=== PATIENT | female | born 1985 | race African-American/Black ===

== ENCOUNTER 2017-02-17 16:40 | Emergency (ER) | payer OTHER ==
--- NOTE | ~2017-02-17 | EKG ---
PATIENT: RUTH MONROE UNIT #: [id number] Ventricular Rate: 68 BPM Atrial Rate: 68 BPM P-R Interval: 168 ms QRS Duration: 82 ms Q-T Interval: 424 ms QTC Calculation(Bezet): 450 ms P [place]: 46 degrees Calculated R [place]: 38 degrees Calculated T [place]: 22 degrees Diagnosis Line: Normal sinus rhythm with sinus arrhythmia Diagnosis Line: Normal ECG Diagnosis Line: When compared with ECG of 01-SEP-2016 15:47, Diagnosis Line: No significant change was found Diagnosis Line: Confirmed by VALORIE BOOTH MD ([id number]) on 02/21/2017 Diagnosis Line: 11:58:20 AM INTERPRETING MD: LEOBARDO ARDON
[2017-02-17 16:23] LABS: BASOPHIL% 0.2 % (0-2.5); DIFF IND NO; HEMATOCRIT 32.7 % (35.0-45.0); HEMOGLOBIN 10.3 gm/dL (12.0-16.0); LYMPHOCYTE# 0.5 X10e3 (1.0-3.5); LYMPHOCYTE% 3.6 % (17.0-45.0); MEAN CELL VOLUME 79.7 FL (83-96); MEAN CORPUSCULAR HGB CONC 31.3 g/dL (30-36); MEAN PLATELET VOLUME 8.4 FL (6.5-11.5); MONOCYTE# 0.4 X10e3 (0-1.0); MONOCYTE% 3.1 % (3.0-12.0); NEUTROPHIL# 12.5 X10e3 (1.5-7.1); NEUTROPHIL% 93.1 % (40-75); PLATELET COUNT 339 X10e3 (140-420); RED BLOOD COUNT 4.11 X10e (3.90-5.30); RED CELL DISTRIBUTION WIDTH 17.4 % (11.0-15.5); WHITE BLOOD COUNT 13.4 X10e3 (4.0-10.5)
[2017-02-17 16:30] LABS: BUN/CREATININE RATIO 11.25; CALCIUM SERUM 9.9 mg/dL (8.4-10.2); CREATININE SERUM 0.8 mg/dL (0.6-1.4); GLOM FILT RATE Estimated 115.6 mL/min (>60); POTASSIUM 3.5 mmol/L (3.5-5.1)
[2017-02-17 18:19] LABS: URINE APPEARANCE CLEAR; URINE BILIRUBIN NEG (NEG); URINE BLOOD TRACE-INTACT (NEG); URINE COLOR YELLOW; URINE GLUCOSE NEG (NORM); URINE LEUKOCYTE ESTERASE NEG (NEG); URINE NITRATE NEG (NEG); URINE PROTEIN 2+ (NEG)
[2017-02-17 18:26] LABS: MICRO INDICATED? YES; URINE KETONE 2+ (NEG); URINE SOURCE CLEAN CATCH
[2017-02-17 18:31] LABS: CULTURE INDICATED? YES; URINE BACTERIA 1+ (NEG)
[2017-02-17 18:32] LABS: URINE AMORPHOUS SEDIMENT AMORP URATES; URINE GRANULAR CAST 0-2 /[HPF]; URINE HYALINE CAST 0-2 /[HPF]; URINE MUCUS PRESENT; URINE SQUAMOUS EPITHELIAL CELL FEW /[HPF]
== END 2017-02-17 18:36 | disposition home or self-care (01) ==
LOC: SED 16:40
PROVIDERS: Physician Assistant
DX: R11.2 Nausea with vomiting, unspecified (principal); F41.9 Anxiety disorder, unspecified; R19.7 Diarrhea, unspecified; J45.909 Unspecified asthma, uncomplicated
CPT/HCPCS: 36415; 80048; 81003; 84703; 85025; 87086; 93005; 96361; 96374; 96375; 99284; J2060; J2405; J2550; J2765